=== PATIENT | male | born 1975 | race Caucasian/White ===

== ENCOUNTER 2018-05-30 08:31 | Emergency (ER) | payer OTHER ==
[2018-05-30] MEDS ORDERED: KETOROLAC TROMETHAMINE 60 MG/2 ML VIAL IM ONE (08:44)
--- NOTE | 2018-05-30 08:44 | PDOC ---
History of Present Illness - General Stated Complaint: R SHOULDER AND ARM PAIN Time Seen by Provider: 05/30/18 08:39 - History of Present Illness Initial Comments: 05/30/18 11:59 Chief complaint: Right shoulder pain and stiffness History of present illness: Patient awoke Monday morning with pain in the right shoulder, with progressive stiffness thereafter. He is unable to fully abduct his arm. No trauma injury or repetitive use of the arm or shoulder. No prior joint or muscle disease Review of systems: No distal numbness tingling pain or weakness. No chest pain, shortness of breath, abdominal pain, nausea, vomiting, diarrhea, visual or focal neurologic symptoms, unsteadiness of gait, recent URI symptoms, sore throat, cough, insect or tick bites, hiking or camping. 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 Social/family history: Not working, denies tobacco alcohol or nonprescription drugs, family history noncontributory Physical exam: Alert oriented well-developed well-nourished Afebrile, vital signs normal HEENT clear Neck supple without bruit mass or nodes. No point tenderness or deformity of cervical spine Lungs clear to P&A. No chest wall rib cage deformity or tenderness CV regular without murmur rub or gallop pulses full and symmetric no JVD or edema no bruits Abdomen benign Neurological C2 to 12 intact. Strength full and symmetric. No focal sensory or motor deficits other than inability to abduct the right arm due to shoulder pain. Gait stable and unimpaired Extremities: There is no swelling, deformity, erythema, heat, or point tenderness over the shoulder. However, active range of motion is limited to 90 before pain develops. Passive range of motion is similar limited due to pain. Pulses are full. No distal sensory deficits can be demonstrated. Impression: Rotator cuff tendinitis, rule out occult fracture or dislocation Plan: X-ray is negative. Toradol has provided some relief. 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 Range of motion exercises were demonstrated and recommended 4 times daily. Voltaren was continued. Referred to orthopedics, Dr. Blanco, the patient has seen before. Fully ambulatory and in no severe pain or other distress upon discharge with his to follow-up as directed. Past History - Past Medical History Allergies/Adverse Reactions: Allergies Allergy/AdvReac Type Severity Reaction Status Date / Time No Known Allergies Allergy Verified 05/30/18 08:38 Home Medications: Ambulatory Orders Diclofenac Sodium [Voltaren -] 75 mg PO BID #10 tablet. 05/30/18 COPD: No - Immunization History Immunization Up to Date: Yes - Suicide/Smoking/Psychosocial Hx Smoking History: Never smoked Have you smoked in the past 12 months: No Hx Alcohol Use: No Drug/Substance Use Hx: No Substance Use Type: None *DC/Admit/Observation/Transfer Diagnosis at time of Disposition: Shoulder tendinitis Qualifiers: Laterality: right Qualified Code(s): M75.81 - Other shoulder lesions, right shoulder - Discharge Dispostion Disposition: HOME Condition at time of disposition: Improved Decision to Admit order: No - Prescriptions Prescriptions: Diclofenac Sodium [Voltaren -] 75 mg PO BID #10 tablet.dr - Referrals Referrals: Michele Blanco MD [Staff Physician] - 3 days - Patient Instructions Printed Discharge Instructions: DI for Frozen Shoulder Additional Instructions: Use ice and medication as directed Sling may be used for comfort, but not at all times. Sling should be removed for gentle range of motion exercises as demonstrated, including pendulum and wall walking with the fingers. See orthopedist for further evaluation and treatment within 1 week. - Post Discharge Activity
[2018-05-30 08:49] VITALS: BP 131/78; PULSE 86; TEMP 98.6; BMI 34.7
[2018-05-30] MEDS ORDERED: KETOROLAC TROMETHAMINE 60 MG/2 ML VIAL ONE (08:57)
== END 2018-05-30 09:52 | disposition home or self-care (01) ==
LOC: FER 08:31
PROC: 3E0233Z Introduction of Anti-inflammatory into Muscle, Percutaneous Approach (ICD-10-PCS; principal; 2018-05-30)
DX: M75.81 Other shoulder lesions, right shoulder (principal)
CPT/HCPCS: 73030-TC-RT-FY; 99282-25